=== PATIENT | male | born 1945 | race Caucasian/White ===

== ENCOUNTER → 2025-03-14 11:16 | Outpatient (BNVA) | payer MEDICARE, SELFPAY | PROVIDERS: PCP Nurse Practitioner; Visit Provider Podiatrist Foot & Ankle Surgery | DX: I73.9 Peripheral vascular disease, unspecified (principal); L60.3 Nail dystrophy | CPT/HCPCS: 11721; 99203 ==

== ENCOUNTER → 2025-06-20 11:14 | Outpatient (BNVA) | payer MEDICARE, SELFPAY | PROVIDERS: PCP Nurse Practitioner; Visit Provider Podiatrist Foot & Ankle Surgery | DX: I73.9 Peripheral vascular disease, unspecified (principal); L60.3 Nail dystrophy; L60.8 Other nail disorders | CPT/HCPCS: 11721 ==